=== PATIENT | female | born 1955 | race Asian ===

== ENCOUNTER 2016-11-09 23:51 | Emergency (ER) | payer OTHER ==
[~2016-11-09] VITALS: Ht 157.5 cm; Wt 58.5 kg
[~2016-11-09 23:51] MED LIST: METOPROLOL; SIMVASTATIN
[2016-11-10 00:02] VITALS: Ht 157.5 cm; Wt 58.5 kg
--- NOTE | 2016-11-10 01:25 | ERD ---
ER Documentation Chief Complaint Date/Time DATE: 11/10/16 TIME: 01:23 Chief Complaint Pt reports L wrist pain and previous break HPI 61-year-old female presents here in emergency department for complaints of left wrist pain started today. Patient was sleeping, started to have the pain when she woke up, noted some lump in the left wrist area, described as a throbbing pain, 6/10 scale, is worse upon movement. Noted some swelling on affected area. Patient denies any direct trauma and affected area. Patient has a history of fracture of affected area and was worried about this. Patient did not take any medications of symptoms. Patient denies any numbness or tingling. ROS All systems reviewed and are negative except as per history of present illness. Medications Home Meds Reported Medications [Simvastatin] No Conflict Check 10/18/15 [Metoprolol] No Conflict Check 10/18/15 Allergies Allergies: Coded Allergies: No Known Allergy (Unverified , 10/18/15) PMhx/Soc History of Surgery: Yes (broken bone left wrist ) Anesthesia Reaction: No Hx Neurological Disorder: No Hx Respiratory Disorders: No Hx Cardiac Disorders: Yes (HTN, HYPERLIPIDEMIA) Hx Psychiatric Problems: No Hx Miscellaneous Medical Probl: No Hx Alcohol Use: No Hx Substance Use: No Hx Tobacco Use: No FmHx Family History: diabetes Physical Exam Vitals Vital Signs Date Time Temp Pulse Resp B/P Pulse Ox O2 Delivery O2 Flow Rate FiO2 11/10/16 00:02 98.3 79 16 138/72 97 Physical Exam GENERAL: The patient is well developed and appropriate for usual state of health, in no apparent distress. CHEST: Clear to auscultation bilaterally. There are no rales, wheezes or rhonchi. HEART: Regular rate and rhythm. No murmurs, clicks, rubs or gallops. No S3 or S4. ABDOMEN: Soft, nontender and nondistended. Good bowel sounds. No rebound or guarding. No gross peritonitis. No gross organomegaly or masses. No Garvin sign or McBurney point tenderness. BACK: No midline or flank tenderness. EXTREMITIES: Able to do full range of motion of the left wrist without any restriction but with pain, mild swelling noted. Equal pulses bilaterally. Full range of motion of other joints of the body. Grossly neurovascularly intact. NEURO: Alert and oriented. Cranial nerves 2-12 intact. Motor strength in all 4 extremities with 5/5 strength. Sensation grossly intact. Normal speech and gait. SKIN: Noted 3 cm diameter cystic structure on the dorsal aspect of the left wrist area. No tenderness on palpation noted. There is no apparent rash or petechia. The skin is warm and dry. HEMATOLOGIC AND LYMPHATIC: There is no evidence of excessive bruising or lymphedema. No gross cervical, axillary, or inguinal lymphadenopathy. Results 24 hrs PROCEDURE: Ultrasound left wrist. CLINICAL INDICATION: Palpable lump TECHNIQUE: Real time chapman scale ultrasound imaging of the area of palpable abnormality in the left wrist. Rule COMPARISON: Left wrist x-ray 04/28/2014 20:17 FINDINGS: Heterogeneous subcutaneous focus was cystic and solid components measuring 2 x 0.4 x 1.6 cm and size corresponding to area of palpable abnormality. This may represent a ganglion cyst or hematoma. MRI is recommended for further evaluation. No associated Doppler blood flow. IMPRESSION: Nonspecific heterogeneous subcutaneous focus of cystic and solid components measuring 2 x 0.4 x 1.6 cm in size corresponding to palpable abnormality. MRI or CT correlation is recommended. RPTAT:AAJJ Physician Elizabeth Date Time Electronically viewed and signed by Physician Elizabeth on 11/10/2016 01:56 RAMÍREZ/ CC: FIDE GREEN NP PROCEDURE: XR Wrist. CLINICAL INDICATION: Left wrist pain. Rule TECHNIQUE: AP, lateral and oblique views of the left wrist were performed. COMPARISON: No prior studies are available for comparison. FINDINGS: No acute fracture or dislocation. Intact fixation plate and screws along the volar aspect of the distal radius and without evidence for hardware failure. The bones appear well mineralized. The joint spaces are well preserved. nonspecific soft tissue lump along the dorsum of the wrist and measuring approximately 2 cm in greatest dimension. Correlate with direct inspection. IMPRESSION: 1. No acute fracture or dislocation. 2. Intact volar fixation plate and screws along the distal radius. 3. Soft tissue prominence along the dorsum of the wrist. RPTAT:AAJJ Physician Elizabeth Date Time Electronically viewed and signed by Rebecca Atwood Physician on 11/10/2016 01:58 RAMÍREZ/ CC: FIDE GREEN NP After receiving patients xray report, a wrist support was applied on the patients left wrist. After application of the splint, patient has intact sensation and circulation on distal area of the affected joint. Patient does not complain of numbness or tingling after application of the splint. Patient tolerated procedure well. Procedures/MDM Medical Decision Making: Patient's pain is most likely consistent with a contusion or a sprain. Patient's lump on affected area may be most likely a ganglionic cyst, further evaluation was advised to the patient, possible MRI outpatient and . At this time. No symptoms of any abscess at this time. There is no suspicion for neurovascular compromise. Patient has intact sensation and circulation of the affected extremity. There is low suspicion for septic arthritis. Patient does not have any fever. Radiology exams of the affected area does not show any fracture or dislocation. Disposition: Home. Patient is given prescription for ibuprofen for pain, [place] for severe pain. Patient was advised to elevate the affected area and apply ice on affected area. Patient was advised that if symptoms are worse, numbness, tingling, high fever, unable to move joint, worsening symptoms, to return to emergency department immediately. Otherwise, patient is advised to follow up with the primary care doctor in 5-7 days for reevaluation of symptoms. Departure Diagnosis: Primary Impression: Sebaceous cyst Additional Impression: Wrist pain, left Condition: Stable Patient Instructions: Ganglion Cyst: Hand, Wrist Sprain FIDE GREEN NP Nov 10, 2016 01:25
--- NOTE | 2016-11-10 01:56 | RADRPT ---
PROCEDURE: Ultrasound left wrist. CLINICAL INDICATION: Palpable lump TECHNIQUE: Real time chapman scale ultrasound imaging of the area of palpable abnormality in the left wrist. Rule COMPARISON: Left wrist x-ray 04/28/2014 20:17 FINDINGS: Heterogeneous subcutaneous focus was cystic and solid components measuring 2 x 0.4 x 1.6 cm and size corresponding to area of palpable abnormality. This may represent a ganglion cyst or hematoma. MR I is recommended for further evaluation. No associated Doppler blood flow. IMPRESSION: Nonspecific heterogeneous subcutaneous focus of cystic and solid components measuring 2 x 0.4 x 1.6 cm in size corresponding to palpable abnormality. MRI or CT correlation is recommended. RPTAT:AAJJ Physician Elizabeth Date Time Electronically viewed and signed by Physician Elizabeth on 11/10/2016 01:56 RAMÍREZ/
--- NOTE | 2016-11-10 01:58 | RADRPT ---
PROCEDURE: XR Wrist. CLINICAL INDICATION: Left wrist pain. Rule TECHNIQUE: AP, lateral and oblique views of the left wrist were performed. COMPARISON: No prior studies are available for comparison. FINDINGS: No acute fracture or dislocation. Intact fixation plate and screws along the volar aspect of the di stal radius and without evidence for hardware failure. The bones appear well mineralized. The join t spaces are well preserved. nonspecific soft tissue lump along the dorsum of the wrist and measuri ng approximately 2 cm in greatest dimension. Correlate with direct inspection. IMPRESSION: 1. No acute fracture or dislocation. 2. Intact volar fixation plate and screws along the distal radius. 3. Soft tissue prominence along the dorsum of the wrist. RPTAT:AAJJ Physician Elizabeth Date Time Electronically viewed and signed by Physician Elizabeth on 11/10/2016 01:58 RAMÍREZ/
[2016-11-10] MEDS ORDERED: IBUP-1542 PO (02:09)
[2016-11-10] MEDS ORDERED: HYDR-906 PO (02:09)
== END 2016-11-10 02:35 | disposition home or self-care (01) ==
LOC: FTE 23:51
DX: L72.3 Sebaceous cyst (principal); I10 Essential (primary) hypertension
CPT/HCPCS: 29125; 73110; 76536; Z7502

== ENCOUNTER 2017-06-02 05:58 | Inpatient (IN) | payer OTHER ==
[2017-06-01 12:40] VITALS: BMI 26.2
--- NOTE | 2017-06-01 21:24 | PREOPHP ---
DATE OF ADMISSION: 06/02/2017 HISTORY OF PRESENT ILLNESS: This is a 61-year-old female, 1, para 1. This patient had been referred to me due to pelvic pain. Patient with a history of a cyst that has not changed for a while with a complex cyst on the left adnexa with dysmenorrhea at the time when she was having periods and with early menopause. The patient never had history of clots at that time and history of scoliosis. This patient had a CT of the pelvis done that revealed that she had a left complex adnexal mass that has increased in size containing septation up to 7.3 cm, previously being a 6 cm left ovarian cyst. The evaluation of this mass had solid components or papillary projections by the CT, meaning this could be a malignancy on her left ovary. Otherwise, the CT of the abdomen was normal and she was advised for an exploratory laparotomy and total abdominal hysterectomy with left salpingo-oophorectomy of a 7.3 cm left complex ovarian cyst. The patient does complain of having cyst and pelvic pain that has not gotten better. Her CA-125 had been normal and the CT also states there is no left lymphadenopathy. The Pap smear was normal. The patient had been told a long time ago to be having a left complex ovarian mass that recently has been increasing in size. For this reason, she has been advised for removal of this mass. PAST MEDICAL HISTORY: The patient history, she had wrist surgery, she had scoliosis, hypertension, and high cholesterol. ALLERGIES: SHE HAS NO ALLERGIES. MEDICATIONS: She is on metoprolol and simvastatin. FAMILY HISTORY: For hypertension and diabetes. REVIEW OF SYSTEMS: CARDIOVASCULAR: Negative for cardiovascular events as angina or heart attacks. RESPIRATORY: No history of asthma. She does not drink or smoke. NEUROLOGIC/ORTHOPEDIC: There is no neurological or orthopedic problem. ENDOCRINE: No endocrine problems. There is no allergies and there is no history of drug addiction and the family history for hypertension and diabetes. PHYSICAL EXAMINATION: VITAL SIGNS: Stable. Blood pressure is 110/70, pulse is 80, respirations 16. The weight is 125. She is 5 feet 2 inches. HEAD AND NECK: The head and neck is normal, soft, nontender, no masses. CHEST: Clear. HEART: Normal sinus rhythm. LUNGS: Clear. ABDOMEN: Soft, nontender, no masses. GENITOURINARY: Genitalia with vaginal atrophy. Cervix healthy. Uterus retroverted with small uterus. Adnexa were nonpalpable. EXTREMITIES: The extremities were normal. IMPRESSION AND PLAN: With a diagnosis of left growing complex ovarian mass 7.3 cm and pelvic pain, she is undergoing an exploratory laparotomy with total abdominal hysterectomy and bilateral salpingo-oophorectomy. The patient has been advised of the possible risks and possible complications of the procedure with her alternatives and options. Written information was provided. She had no more questions, and she agreed to go ahead with the procedure with full understanding and no more questions. Dictated By: Shelli Feng MD /kaleb/abel /Document#: [id number]
[2017-06-02] VITALS (19 sets, daily range): BP systolic 99–118; BP diastolic 39–72; PULSE 66–88; RESP 11–22; Ht 157.5 cm; Wt 55.3 kg
[~2017-06-02] VITALS: Ht 157.5 cm; Wt 55.3 kg
[~2017-06-02 05:58] MED LIST changes: +HYDR-906 PO; +IBUP-1542 PO
[2017-06-02] MEDS ORDERED: DEXTROSE 5%-LR 1,000 ML IV SCH (06:47)
[2017-06-02] MEDS ORDERED: CEFAZOLIN 2 GM/50 ML (PMX) 50 ML IVPB ONE (06:47)
[2017-06-02] MEDS ORDERED: ACETAMINOPHEN 1000 MG/100 ML IVPB ONE (07:00)
[2017-06-02] MEDS ORDERED: EPHEDrine SULFATE 50 MG/5 ML SYG ONE (07:00)
[2017-06-02] MEDS ORDERED: ROCURONIUM 50 MG INJ ONE (07:29)
[2017-06-02] MEDS ORDERED: CEFAZOLIN 1 GM INJ ONE (07:29)
[2017-06-02] MEDS ORDERED: FENTAnyl 50 MCG/ML VIAL ONE (07:29)
[2017-06-02] MEDS ORDERED: PROPOFOL 20 ML ONE (07:29)
[2017-06-02] MEDS ORDERED: morphine SULFATE/PF (10 MG/10 ML) INJ ONE (07:30)
[2017-06-02] MEDS ORDERED: MIDAZOLAM 1 MG/ML 2 ML INJ ONE (07:30)
[2017-06-02] MEDS ORDERED: KETOROLAC 30 MG INJ ONE (08:24)
[2017-06-02] MEDS ORDERED: DEXAMETHASONE 4 MG/ML 1 ML INJ ONE (08:24)
[2017-06-02] MEDS ORDERED: ONDANSETRON 4 MG INJ ONE (08:24)
[2017-06-02] MEDS ORDERED: METOCLOPRAMIDE 10 MG INJ ONE (08:24)
[2017-06-02] MEDS ORDERED: PHENYLephrine (100 MCG/ML) 5ML SYG ONE (09:14)
[2017-06-02] MEDS ORDERED: EPHEDrine SULFATE 50 MG/5 ML SYG IV PRN (09:30)
[2017-06-02] MEDS ORDERED: hydrALAzine 20 MG INJ IV PRN (09:30)
[2017-06-02] MEDS ORDERED: ALBUMIN HUMAN 5% 250 ML IV PRN (09:30)
[2017-06-02] MEDS ORDERED: ONDANSETRON 4 MG INJ IV PRN (09:30)
[2017-06-02] MEDS ORDERED: FENTAnyl 50 MCG/ML VIAL IV PRN ×3 (09:30)
[2017-06-02] MEDS ORDERED: NALOXONE (0.4 MG/ML) INJ IV PRN (09:30)
[2017-06-02] MEDS ORDERED: HYDROmorphONE (0.2 MG/ML) 10ML SYG IV PRN ×3 (09:30)
[2017-06-02] MEDS ORDERED: MEPERIDINE 25 MG INJ IV PRN (09:30)
[2017-06-02] MEDS ORDERED: LABETALOL HCL 20MG INJ IV PRN (09:30)
[2017-06-02] MEDS ORDERED: DIPHENHYDRAMINE 50 MG INJ IV PRN ×2 (09:30)
[2017-06-02] MEDS ORDERED: NALBUPHINE HCL (10 MG/1 ML) INJ IV PRN (09:30)
[2017-06-02] MEDS ORDERED: METOCLOPRAMIDE 10 MG INJ IV PRN (09:30)
[2017-06-02] MEDS ORDERED: SUGAMMADEX SODIUM 200 MG/2 ML VIAL IV ONE (09:40)
[2017-06-02] MEDS ORDERED: HYDROmorphONE 1 MG/ML SYG IV PRN (10:30)
[2017-06-02] MEDS ORDERED: HYDROCODONE/APAP (5/325) TAB PO PRN (10:30)
[2017-06-02] MEDS ORDERED: BISACODYL (EC) 5 MG TAB PO PRN (10:30)
[2017-06-02] MEDS ORDERED: ZOLPIDEM 5 MG TAB PO PRN (10:30)
[2017-06-02] MEDS ORDERED: DIPHENHYDRAMINE 50 MG CAP PO PRN (10:30)
--- NOTE | 2017-06-02 10:34 | HPN ---
Date/Time of Note Date/Time of Note DATE: 06/02/17 TIME: 10:33 Interval H&P Admission Note Pt. seen H&P reviewed: No system changes ROSEMARIE ORNELAS MD Jun 02, 2017 10:34
[2017-06-02] MEDS: LACTATED RINGER'S 1,000 ML IV SCH ×2 (10:36→19:09)
[2017-06-02] MEDS: KETOROLAC 30 MG INJ IV SCH ×3 (10:37→21:39)
--- NOTE | 2017-06-02 10:38 | OPR ---
Date/Time of Note Date/Time of Note DATE: 06/02/17 TIME: 10:34 Operative Report Free Text/Dictation [facility] Procedure Date: Jun 02, 2017 Preoperative Diagnosis ENLARGING LEFT COMPLEX OVARIAN CYST PELVIC PAIN Postoperative Diagnosis SAME Surgeon: ROSEMARIE ORNELAS MD Manager Housekeeping: OCTAVIO CORONADO MD Anesthesia Type: general Anesthesiologist: NELY SALGADO MD Estimated Blood Loss: 150 - 200 ml's Transfusion Required: no Specimens UTREUS BILATERAL TUBES AND OVARIES Grafts/Implants: none Pt Condition Post Procedure: stable Disposition: PACU ROSEMARIE ORNELAS MD Jun 02, 2017 10:38
[2017-06-02] MEDS: METOCLOPRAMIDE 10 MG TAB PO SCH ×2 (11:56→17:49)
--- NOTE | 2017-06-02 12:40 | OPR ---
DATE OF OPERATION: 06/02/2017 SURGEON: Shelli Feng MD. HEATING ELEMENT WINDER: Westley Rosales MD. ANESTHESIOLOGIST: . OPERATION PERFORMED: Total abdominal hysterectomy, bilateral salpingo-oophorectomy. PREOPERATIVE DIAGNOSIS: Pelvic pain, left growing complex ovarian mass 7.3 cm. ANESTHESIA: General anesthesia. COMPLICATIONS: No complications. OPERATIVE PROCEDURE: The patient was given general anesthesia, and placed in the supine position. The abdominal area was prepped and draped and a Pepe catheter had been placed in the bladder. A transverse incision was made suprapubically over the midline and transversely 2 cm up the pubic bone for about 10 cm in length. The abdominal cavity was reached. The exploration of the area revealed that there was a large cyst of the left ovary that was complex. At this time before putting the retractors, a clamp was used to clamp the infundibulopelvic ligament on the left side, and the left tube and ovary were removed. After the incision was done after the clamp was placed and the specimen was the ovary and tube on the left side. The hemostasis was done with figure of 8 sutures with #0 Vicryl, and reinforcement with the same stitch. At this time, the self-retaining retractor was placed. There was no ascites. The uterus was very small. The right ovary and tube were normal. The self-retaining retractor was placed and the uterus was grabbed, and the round ligaments and the ovarian ligament and tube were clamped on the right side, and the bladder flap was made. The uterine vessels and ovarian ligament and tube were cauterized with the LigaSure instrument with 3 green levels the uterine arteries on both sides were again grabbed, clamped, cauterized and cut. The cardinal ligaments and uterosacral ligaments were clamped, cut, and tied with #1 Vicryl, #0 Vicryl and the uterus was removed at this level. The vaginal cuff was opened, it was very small and atrophic. A few stitches with #1 Vicryl were placed for the vaginal vault closure, and the cavity was looked at under the water and it had good hemostasis. The right tube and ovary were grabbed with the LigaSure instrument, cauterized and excised. The tracking of the ureters were done. Both ureters were with good peristalsis, away from the incisional area. The piece of Interceed was placed on the pelvic area after washing of the cavity was done, and assessment of the hemostasis was found to be satisfactory. The peritoneum was closed with #2-0 Vicryl suture. The fascia was closed with #0 PDS loop suture, and #2-0 Vicryl was used for the subcutaneous tissue, and #3-0 Monocryl was used subcuticular to the skin. Steri-Strips and Dermabond had been applied. The patient tolerated the procedure well and left the OR awake and stable. Sponge counts and instrument counts were correct. Intravenous antibiotics were given for prophylaxis. The blood loss was minimal and the urine was clear at the end of the procedure. Dictated By: Shelli Feng MD /[email or web address] /Document#: [id number]
[2017-06-02] MEDS: CEFAZOLIN 1 GM/50 ML (PMX) 50 ML IVPB SCH ×2 (13:45→21:38)
[2017-06-03 00:03] VITALS: BP 98/50; RESP 18
[2017-06-03] MEDS: LACTATED RINGER'S 1,000 ML IV SCH ×2 (02:05→05:38)
[2017-06-03 05:33] LABS: EOSINOPHILS % 0.1 % (0.0-7.0); HEMOGLOBIN 10.8 g/dl (12.0-16.0); LYMPHOCYTES # 1.1 10^3/ul (0.8-2.9); LYMPHOCYTES % 16.4 % (15.0-51.0); MEAN CORPUSCULAR HEMOGLOBIN 29.5 pg (29.0-33.0); MEAN CORPUSCULAR HGB CONC 33.8 g/dl (32.0-37.0); MEAN CORPUSCULAR VOLUME 87.4 fl (82.0-101.0); MEAN PLATELET VOLUME 10.1 fl (7.4-10.4); MONOCYTE # 0.7 10^3/ul (0.3-0.9); MONOCYTES % 9.9 % (0.0-11.0); PLATELET COUNT 215 10^3/UL (140-415); RED BLOOD COUNT 3.66 10^6/ul (4.20-5.40); RED CELL DISTRIBUTION WIDTH 12.4 % (11.5-14.5); WHITE BLOOD COUNT 6.9 10^3/ul (4.8-10.8)
[2017-06-03] MEDS: CEFAZOLIN 1 GM/50 ML (PMX) 50 ML IVPB SCH (05:37)
[2017-06-03] MEDS: KETOROLAC 30 MG INJ IV SCH ×4 (05:38→21:37)
[2017-06-03 05:56] LABS: CREATININE 0.59 mg/dl (0.44-1.00); POTASSIUM 3.8 mmol/L (3.5-5.1)
[2017-06-03] MEDS: METOCLOPRAMIDE 10 MG TAB PO SCH ×5 (06:00→23:44)
[2017-06-03 06:34] VITALS: BP 127/88; PULSE 75; RESP 18
[2017-06-03 07:42] VITALS: BP 98/60; RESP 18
--- NOTE | 2017-06-03 11:26 | PN ---
Date/Time of Note Date/Time of Note DATE: 06/03/17 TIME: 11:24 Assessment/Plan Lines/Catheters IV Catheter Type (from Nrsg): Peripheral IV Pepe in Place (from Nrsg): Yes Subjective 24 Hr Interval Summary day 1 postop afebrile, feels good , in pain controlled with meds. incision dry encouraged ambulation Constitutional: BM, ambulates, flatus, improved, no complaints, urine output Feeding: advancing diet Pain Control: well controlled Detailed Summary Eyes: no complaints ENT: no complaints Respiratory: no complaints Cardiovascular: no complaints Gastrointestinal: no complaints Genitourinary: no complaints Musculoskeletal: no complaints Skin: no complaints Neurologic: no complaints Endocrine: no complaints Lymphatic: no complaints Psychological: nl mood/affect, no complaints Immunologic: no complaints Exam/Review of Systems Vital Signs Vitals Vital Signs Date Time Temp Pulse Resp B/P Pulse Ox O2 Delivery O2 Flow Rate FiO2 06/03/17 07:42 98.3 86 18 98/60 95 06/03/17 06:34 Room Air Intake and Output 06/02/17 06/02/17 06/03/17 15:00 23:00 07:00 Intake Total 1330 ml 1530 ml 1900 ml Output Total 100 ml 1000 ml 1650 ml Balance 1230 ml 530 ml 250 ml Exam Constitutional: alert, oriented, well developed Psych: nl mood/affect, no complaints Head: atraumatic, normocephalic Eyes: EOMI, nl conjunctiva, nl lids, nl sclera ENMT: mucosa pink and moist, nl external ears & nose, nl lips & teeth, nl nasal mucosa & septum Neck: non-tender, supple Respiratory: clear to auscultation, normal air movement Cardiovascular: nl pulses, regular rate and rhythm Gastrointestinal: nl liver, spleen, non-tender, soft Musculoskeletal: nl extremities to inspection, nl gait and stance Extremities: normal pulses Neurological: TECH BRAZER TESTER II-XII intact, nl mental status, nl speech, nl strength Skin: nl turgor, rash or lesions Lymph: nl lymph nodes Results Result Diagram: 06/03/17 0437 06/03/17 0437 ROSEMARIE ORNELAS MD Jun 03, 2017 11:26
[2017-06-03 14:37] VITALS: BP 121/57; RESP 18
[2017-06-03 20:19] VITALS: BP 104/53; RESP 18
[2017-06-04 00:44] VITALS: BP 110/60; RESP 18
[2017-06-04] MEDS: KETOROLAC 30 MG INJ IV SCH ×4 (04:37→23:33)
[2017-06-04] MEDS: METOCLOPRAMIDE 10 MG TAB PO SCH ×4 (07:04→23:34)
[2017-06-04 07:59] VITALS: BP 113/59; RESP 15
[2017-06-04] MEDS: HYDROCODONE/APAP (5/325) TAB PO PRN (08:49)
[2017-06-04 11:50] VITALS: BP 137/79; PULSE 93; RESP 16
--- NOTE | 2017-06-04 12:16 | PN ---
Date/Time of Note Date/Time of Note DATE: 06/04/17 TIME: 12:08 Assessment/Plan Lines/Catheters IV Catheter Type (from Nrsg): Saline Lock Pepe in Place (from Nrsg): Yes Subjective 24 Hr Interval Summary day 2 postop feels good, afebrile, passing gases incision healing good Feeding: advancing diet Pain Control: well controlled Detailed Summary Eyes: no complaints ENT: no complaints Respiratory: no complaints Cardiovascular: no complaints Gastrointestinal: no complaints Genitourinary: no complaints Musculoskeletal: no complaints Skin: no complaints Neurologic: no complaints Endocrine: no complaints Lymphatic: no complaints Psychological: nl mood/affect, no complaints Immunologic: no complaints Exam/Review of Systems Vital Signs Vitals Vital Signs Date Time Temp Pulse Resp B/P Pulse Ox O2 Delivery O2 Flow Rate FiO2 06/04/17 11:50 97.9 93 16 137/79 97 Room Air Intake and Output 06/03/17 06/03/17 06/04/17 14:59 22:59 06:59 Intake Total 600 ml 780 ml Output Total 700 ml Balance 600 ml 80 ml Exam Constitutional: alert, oriented, well developed Psych: nl mood/affect, no complaints Head: atraumatic, normocephalic Eyes: EOMI, nl conjunctiva, nl lids, nl sclera ENMT: mucosa pink and moist, nl external ears & nose, nl lips & teeth, nl nasal mucosa & septum Neck: non-tender, supple Respiratory: clear to auscultation, normal air movement Cardiovascular: nl pulses, regular rate and rhythm Gastrointestinal: nl liver, spleen, non-tender, soft Musculoskeletal: nl extremities to inspection, nl gait and stance Extremities: normal pulses Neurological: TABLE WORKER PACKAGER II-XII intact, nl mental status, nl speech, nl strength Skin: nl turgor, rash or lesions Lymph: nl lymph nodes Results Result Diagram: 06/03/177 06/03/17 043 ROSEMARIE ORNELAS MD Jun 04, 2017 12:16
[2017-06-04] MEDS ORDERED: ACETAMINOPHEN 500 MG TAB PO PRN (12:30)
[2017-06-04] MEDS: CEPHALEXIN 500 MG CAP PO SCH ×3 (13:16→23:33)
[2017-06-04 14:00] VITALS: BP 111/66; RESP 15
[2017-06-04 20:48] VITALS: BP 124/63; RESP 20
[2017-06-05 03:06] VITALS: BP 122/59; RESP 18
[2017-06-05 05:27] LABS: BASOPHILS % 0.5 % (0.0-2.0); EOSINOPHILS # 0.2 10^3/ul (0.0-0.5); EOSINOPHILS % 2.8 % (0.0-7.0); HEMATOCRIT 33.6 % (37.0-47.0); HEMOGLOBIN 11.3 g/dl (12.0-16.0); LYMPHOCYTES # 2.1 10^3/ul (0.8-2.9); LYMPHOCYTES % 31.8 % (15.0-51.0); MEAN CORPUSCULAR HEMOGLOBIN 29.4 pg (29.0-33.0); MEAN CORPUSCULAR HGB CONC 33.6 g/dl (32.0-37.0); MEAN CORPUSCULAR VOLUME 87.3 fl (82.0-101.0); MEAN PLATELET VOLUME 9.9 fl (7.4-10.4); MONOCYTE # 0.5 10^3/ul (0.3-0.9); MONOCYTES % 7.4 % (0.0-11.0); NEUTROPHILS % 57.2 % (39.0-77.0); PLATELET COUNT 222 10^3/UL (140-415); RED BLOOD COUNT 3.85 10^6/ul (4.20-5.40); RED CELL DISTRIBUTION WIDTH 12.6 % (11.5-14.5); WHITE BLOOD COUNT 6.5 10^3/ul (4.8-10.8)
[2017-06-05] MEDS: METOCLOPRAMIDE 10 MG TAB PO SCH ×2 (06:00→12:06)
[2017-06-05] MEDS: KETOROLAC 30 MG INJ IV SCH (06:30)
[2017-06-05] MEDS: CEPHALEXIN 500 MG CAP PO SCH ×2 (06:32→12:06)
[2017-06-05 07:36] VITALS: BP 129/76; RESP 14
[2017-06-05 07:45] LABS: ADD UMIC YES; UR ASCORBIC ACID NEGATIVE (NEGATIVE); UR BILIRUBIN (Dip) NEGATIVE (NEGATIVE); UR BLOOD (Dip) 2+ mg/dL (NEGATIVE); UR CLARITY CLEAR (CLEAR); UR COLOR STRAW (YELLOW); UR GLUCOSE (Dip) NEGATIVE (NEGATIVE); UR KETONES (Dip) 1+ mg/dL (NEGATIVE); UR LEUKOCYTE ESTERASE (Dip) NEGATIVE Leu/ul (NEGATIVE); UR NITRITE (Dip) NEGATIVE (NEGATIVE); UR RBC 21 /HPF (0-5); UR SPECIFIC GRAVITY (Dip) 1.008 (1.003-1.030); UR TOTAL PROTEIN (Dip) NEGATIVE (NEGATIVE); UR UROBILINOGEN (Dip) NEGATIVE (NEGATIVE)
[2017-06-05] MEDS: HYDROCODONE/APAP (5/325) TAB PO PRN (13:39)
[2017-06-05 13:48] VITALS: BP 144/66; RESP 14
--- NOTE | 2017-06-05 14:17 | PD.PPDC ---
SILVER CHASER Discharge Instruction Condition Patient Condition: Good Diet Diet: Resume Regular Diet Activity/Restrictions Activity: Bedrest May be up to bathroom May be up for meals May Shower Restrictions: No Exercising No Lifting No Driving Minimize Walking Minimize Stair-climbing No Sexual Activity Nothing in the Vagina No [place] No Tampons, douche Wound/Drain Care Instructions Wound/Drain Care Instructions: Remove Steri Strips in 2 weeks Keep clean and dry Follow-up Follow-up with Physician: 2, Week/Weeks Return to clinic for OPERATIVE SUPERVISOR Instructions: Fever greater than 101 Chills Worsening abdominal pain Excessive Vaginal Bleeding Surgical Instructions: Incisional Drainage Incisional Redness KWAN HAMILTON MD Jun 05, 2017 14:17
--- NOTE | 2017-06-05 14:25 | DS ---
Date/Time of Note Date/Time of Note DATE: 06/05/17 TIME: 14:19 Discharge Summary Admission/Discharge Info Admit Date/Time Jun 02, 2017 at 05:58 Discharge Date/Time Jun 05, 2017 Discharge Diagnosis Adenomyosis, left ovarian mucinous cystadenoma. Patient Condition: Good Procedures [facility]/BSO Hospital Course Pt has done well postoperatively. She slowly advanced her diet, and is now tolerating a regular diet and has had some loose BM's. Voiding w/o a problem. Pain management is fairly good and pt is looking forward to having her own meds and not having to wait. T=98.0 BP 144/66. Abdomen soft, NT, non-distended. Incision clean, dry and intact with steri-strips in place. Ext NT, no edema. WBC 6.5 Hgb 11.3 Plts 222K Home Meds Active Scripts Hydrocodone/Acetaminophen ([place] 5-325 Tablet) 1 Each Tablet, 1 TAB PO Q6H Y for SEVERE PAIN LEVEL 7-10, #20 TAB Prov:FIDE GREEN NP 11/10/16 Ibuprofen* (Motrin*) 600 Mg Tab, 600 MG PO Q6H Y for PAIN AND OR ELEVATED TEMP, #30 TAB Prov:FIDE GREEN NP 11/10/16 Reported Medications [Simvastatin] No Conflict Check 10/18/15 [Metoprolol] No Conflict Check 10/18/15 Follow-up Plan To make an appt with Dr Feng in 2 weeks. Primary Care Provider Care Physician No Primary Time spent on discharge: < 30 minutes Pending Labs Laboratory Tests Test 06/05/17 03:32 06/05/17 04:51 Urine Color STRAW (YELLOW) Urine Clarity CLEAR (CLEAR) Urine pH 7.0 (5.0-9.0) Urine Specific [place] 1.008 (1.003-1.030) Urine Ketones 1+mg/dL (NEGATIVE) Urine Nitrite NEGATIVEmg/dL (NEGATIVE) Urine Bilirubin NEGATIVEmg/dL (NEGATIVE) Urine Urobilinogen NEGATIVEmg/dL (NEGATIVE) Urine Leukocyte Esterase NEGATIVELeu/ul (NEGATIVE) Urine Microscopic RBC 21/HPF (0-5) Urine Microscopic WBC 3/HPF (0-5) Urine Hemoglobin 2+mg/dL (NEGATIVE) Urine Glucose NEGATIVEmg/dL (NEGATIVE) Urine Total Protein NEGATIVEmg/dl (NEGATIVE) White Blood Count 6.510^3/ul (4.8-10.8) Red Blood Count 3.8510^6/ul (4.20-5.40) Hemoglobin 11.3g/dl (12.0-16.0) Hematocrit 33.6% (37.0-47.0) Mean Corpuscular Volume 87.3fl (82.0-101.0) Mean Corpuscular Hemoglobin 29.4pg (29.0-33.0) Mean Corpuscular Hemoglobin Concent 33.6g/dl (32.0-37.0) Red Cell Distribution Width 12.6% (11.5-14.5) Platelet Count 79212^3/UL (140-415) Mean Platelet Volume 9.9fl (7.4-10.4) Neutrophils % 57.2% (39.0-77.0) Lymphocytes % 31.8% (15.0-51.0) Monocytes % 7.4% (0.0-11.0) Eosinophils % 2.8% (0.0-7.0) Basophils % 0.5% (0.0-2.0) Nucleated Red Blood Cells % 0.0/100WBC (0.0-0.0) Neutrophils # (Manual) 3.710^3/ul (1.7-7.5) Lymphocytes # 2.110^3/ul (0.8-2.9) Monocytes # 0.510^3/ul (0.3-0.9) Eosinophils # 0.210^3/ul (0.0-0.5) Basophils # 0.010^3/ul (0.0-0.1) Nucleated Red Blood Cells # 0.010^3/ul (0.0-0.0) KWAN HAMILTON MD Jun 05, 2017 14:25
== END 2017-06-05 15:03 | disposition home or self-care (01) | DRG 743 ==
LOC: REC 05:58 → EDSTATUS 07:30 → MS1 10:54
PROVIDERS: ADMIT Obstetrics & Gynecology; ATTEND Obstetrics & Gynecology
PROC: 0UTC0ZZ Resection of Cervix, Open Approach (ICD-10-PCS; 2017-06-02)
PROC: 0UT70ZZ Resection of Bilateral Fallopian Tubes, Open Approach (ICD-10-PCS; 2017-06-02)
PROC: 0UT20ZZ Resection of Bilateral Ovaries, Open Approach (ICD-10-PCS; 2017-06-02)
PROC: 0UT90ZZ Resection of Uterus, Open Approach (ICD-10-PCS; principal; 2017-06-02 07:30)
DX: D27.1 Benign neoplasm of left ovary (principal); I10 Essential (primary) hypertension; R10.2 Pelvic and perineal pain; N94.6 Dysmenorrhea, unspecified; E78.00 Pure hypercholesterolemia, unspecified; N80.0 Endometriosis of uterus
CPT/HCPCS: 80051; 81001; 82565; 84520; 85025; 86850; 86900; 86901; 86920; 87086; 88305; J0131; J0690; J1100; J1885; J2250; J2274; J2370; J2405; J2765; J3010; J7120